=== PATIENT | female | born 1985 | race Caucasian/White ===

== ENCOUNTER 2016-12-02 16:28 | Emergency (ER) | payer OTHER ==
[2016-12-02] MEDS ORDERED: Sodium Chloride 0.9% 500 ML IV ONE (17:12)
[2016-12-02] MEDS ORDERED: Acetaminophen 650mg/20.3ml solution UD ONE (17:50)
[2016-12-02 17:51] LABS: BASO % 0.2 % (0.0-2.0); EOS # 0.4 K/uL (0.0-0.7); EOS % 2.8 % (0.0-4.0); LYMPH # 4.1 K/uL (1.0-4.3); LYMPH % 28.6 % (20.0-40.0); MEAN CELL VOLUME 92.4 fL (81.0-99.0); MEAN CORPUSCULAR HEMOGLOBIN 31.2 pg (27.0-31.0); MEAN CORPUSCULAR HGB CONC 33.8 g/dL (33.0-37.0); MEAN PLATELET VOLUME 7.9 fL (7.2-11.7); MONO # 0.9 K/uL (0.0-0.8); MONO % 6.1 % (0.0-10.0); RED CELL DISTRIBUTION WIDTH 11.9 % (11.5-14.5); WHITE BLOOD COUNT 14.5 K/uL (4.8-10.8)
[2016-12-02 18:00] LABS: CHLORIDE 105 mmol/L (98-107); POTASSIUM 3.6 mmol/L (3.6-5.2); SODIUM 141 mmol/L (132-148)
[2016-12-02 18:02] LABS: ALB/GLOB RATIO 1.3 (1.0-2.1); ALKALINE PHOSPHATASE 60 U/L (38-126); AST/SGOT 17 U/L (14-36); BILIRUBIN,TOTAL 0.4 mg/dL (0.2-1.3); CARBON DIOXIDE 24 mmol/L (22-30); GFR AFRICAN-AMERICAN > 60
[2016-12-02 18:03] LABS: ALT/SGPT 26 U/L (9-52); BLOOD UREA NITROGEN 11 mg/dL (7-17); CALCIUM 9.2 mg/dl (8.6-10.4); GLUCOSE,RANDOM 80 mg/dL (65-105)
--- NOTE | 2016-12-02 18:07 | C.PDOC ---
History Of Present Illness <JacjeffpanchitoJudiMartina - Last Filed: 12/02/16 19:14> <Sheri Carrizales - Last Filed: 12/02/16 20:00> 31 y/o female, A1, presents to ED for evaluation of vaginal bleeding that started last night after intercourse. Pt states that she noticed blood when urinating this morning. Pt also complaints of right shoulder pain radiating to chest for the last 2 hours. Notes that shoulder pain is worse with movement. Denies taking any OTC pain medications. Otherwise, denies any fever, chills, or any other associated symptoms at this time. (Martina Fuentes) History Per: Patient History/Exam Limitations: no limitations Onset/Duration Of Symptoms: Days (1) Current Symptoms Are (Timing): Still Present Quality: "Pain" Associated Symptoms: denies: Nausea, Dyspnea, Diaphoresis, Syncope Modifying Factors: None Alleviating Factors: None Recent travel outside of the [place]: No Additional History Per: Patient <Judi Fuentesov - Last Filed: 12/02/16 19:14> <SofieElidaalvarado - Last Filed: 12/02/16 20:00> Time Seen by Provider: 12/02/16 17:09 Chief Complaint (Nursing): Female Genitourinary Past Medical History Reviewed: Historical Data, Nursing Documentation, Vital Signs Family History: States: No Known Family Hx - Social History Hx Alcohol Use: No Hx Substance Use: No - Immunization History Hx Tetanus Toxoid Vaccination: No Hx Influenza Vaccination: No Hx Pneumococcal Vaccination: No <Martina Fuentes - Last Filed: 12/02/16 19:14> Review Of Systems Except As Marked, All Systems Reviewed And Found Negative. Constitutional: Negative for: Fever, Chills Cardiovascular: Positive for: Chest Pain (right side). Negative for: Palpitations, Light Headedness Respiratory: Negative for: Cough, Shortness of Breath Gastrointestinal: Negative for: Nausea, Vomiting, Abdominal Pain, Diarrhea, Constipation Genitourinary: Positive for: Hematuria, Vaginal Bleeding. Negative for: Dysuria , Frequency, Incontinence, Vaginal Discharge, Rash Musculoskeletal: Positive for: Shoulder Pain (right). Negative for: Neck Pain, Back Pain Skin: Negative for: Rash, Bruising <Martina Fuentes - Last Filed: 12/02/16 19:14> Physical Exam - Physical Exam Appears: Non-toxic, No Acute Distress Skin: Normal Color, Warm, Dry, No Rash Head: Atraumatic, Normacephalic Eye(s): bilateral: Normal Inspection, EOMI Nose: Normal Oral Mucosa: Moist Neck: Normal ROM, No Midline Cervical Tenderness, No Paracervical Tenderness, Supple Chest: Symmetrical Cardiovascular: Rhythm Regular, No Murmur Respiratory: Normal Breath Sounds, No Rales, No Rhonchi, No Wheezing Gastrointestinal/Abdominal: Soft, No Tenderness, No Guarding, No Rebound Back: No CVA Tenderness, No Vertebral Tenderness, Paraspinal Tenderness (right trapezius tenderness) Extremity: Normal ROM, No Tenderness, Capillary Refill (<2 sec.), No Deformity Neurological/Psych: Oriented x3, Normal Speech <Martina Fuentes - Last Filed: 12/02/16 19:14> ED Course And Treatment - Laboratory Results Result Diagrams: 12/02/16 17:46 12/02/16 17:46 O2 Sat by Pulse Oximetry: 99 (on RA) Pulse Ox Interpretation: Normal Progress Note: Blood work, UA, pelvis US ordered and reviewed. Pt was given Toradol, IV fluids, and Tylenol. Pt endorsed to Dr Carrizales pending US results, labs and re-evaluation. <Martina Fuentes - Last Filed: 12/02/16 19:14> - Laboratory Results Result Diagrams: 12/02/16 17:46 12/02/16 17:46 <Sheri Carrizales - Last Filed: 12/02/16 20:00> Disposition - Disposition Disposition Time: 19:14 <Martina Fuentes - Last Filed: 12/02/16 19:14> Counseled Patient/Family Regarding: Studies Performed, Diagnosis, Need For Followup <Sheri Carrizales - Last Filed: 12/02/16 20:00> - Disposition Referrals: Hattie Randle MD [Staff Provider] - Condition: FAIR Instructions: Threatened Miscarriage (ED) Forms: [employer] ([place]) - Clinical Impression Clinical Impression: First trimester bleeding, Shoulder pain, Threatened - PA / CARDER BLANKETS / Resident Statement MD/DO has reviewed & agrees with the documentation as recorded. - Scribe Statement The provider has reviewed the documentation as recorded by the Scribe <Martina Fuentes - Last Filed: 12/02/16 19:14> <Sheri Carrizales - Last Filed: 12/02/16 20:00> - Scribe Statement Alberto Randle All medical record entries made by the Scribe were at my direction and personally dictated by me. I have reviewed the chart and agree that the record accurately reflects my personal performance of the history, physical exam, medical decision making, and the department course for this patient. I have also personally directed, reviewed, and agree with the discharge instructions and disposition. (Martina Fuentes) Physician Patient Turnover Patient Signed Over To: Sheri Carrizales <Martina Fuentes - Last Filed: 12/02/16 19:14>
[2016-12-02 18:23] VITALS: PULSE 102
--- NOTE | 2016-12-02 19:26 | US ---
EXAM: US First Trimester, Transabdominal CLINICAL HISTORY: 31 years old, female; Signs and symptoms; Lmp or gestational age (in weeks): [id number]; Other: Bleeding; TECHNIQUE: Real-time transabdominal obstetrical ultrasound of the maternal pelvis and a first trimester with image documentation. COMPARISON: There are no prior studies for comparison. FINDINGS: Gestation: There is a single gestational sac in the uterus. Uterus: Uterus measures approximately 12 x 5 x 6 cm. Cervix measures approximately 3.3 cm in length. Ovaries: Right ovary measures 2.2 x 1.8 x 2.2 cm. There are multiple small follicles. There is intraovarian blood flow. Left ovary could not be identified Free fluid: There is no free fluid. IMPRESSION: Single intrauterine gestation not optimally evaluated with transabdominal imaging EXAM: US , Transvaginal EXAM DATE/TIME: 12/02/2016 5:12 PM CLINICAL HISTORY: 31 years old, female; Signs and symptoms; Lmp or gestational age (in weeks): [id number]; Other: Bleeding; TECHNIQUE: Real-time transvaginal obstetrical ultrasound of the maternal pelvis and a first trimester with image documentation. Transvaginal imaging was used for better evaluation of the fetus and adnexa. COMPARISON: There are no prior studies for comparison. FINDINGS: Gestation: There is a single intrauterine gestation. Gestational sac has mean diameter 23 mm. Lockhart rump length measures 5.4 mm . There is no embryonic cardiac activity A yolk sac is present, internal diameter measures 3 mm. Uterus: Uterus measures approximately 9 x 5 x 6 cm. Cervix measures approximately 3.6 cm in length. Ovaries: Right ovary measures approximately 2.82 x 1.36 x 2.03 cm. There are multiple small follicles. Left ovary measures approximately 2.57 x 2.24 x 2.47 cm. There is a corpus luteum in the left ovary. There is flow in both ovaries on Doppler imaging. Free fluid: There is no free fluid. IMPRESSION: 6 week 4 day single intrauterine gestation, no embryonic cardiac activity Correlation with serial beta hCG levels advised
[2016-12-02 19:47] LABS: RBC URINE < 1 /hpf (0-3); URINE BACTERIA RARE (<OCC); URINE BILIRUBIN NEGATIVE (NEGATIVE); URINE BLOOD 2+ (NEGATIVE); URINE COLOR Yellow (YELLOW); URINE GLUCOSE (UA) NORMAL (Normal); URINE KETONE NEGATIVE (NEGATIVE); URINE LEUKOCYTE ESTERASE NEG Leu/uL (Negative); URINE PROTEIN NEGATIVE (NEGATIVE); URINE UROBILINOGEN NORMAL mg/dL (0.2-1.0); WBC URINE < 1 /hpf (0-5)
[2016-12-02 20:16] VITALS: BP 118/70; RESP 81; TEMP 97.6; O2SAT 20
--- NOTE | 2016-12-03 15:04 | CARD ---
APPROVED REPORT EKG Measurement Heart [id number] <Conclusion> Normal sinus rhythm Normal ECG
== END 2016-12-02 20:16 | disposition home or self-care (01) ==
LOC: C.ER 16:28
DX: O20.0 Threatened abortion (principal); Z3A.01 Less than 8 weeks gestation of pregnancy; M25.511 Pain in right shoulder
CPT/HCPCS: 76805; 76817; 80053; 81001; 84702; 84703; 85025; 86850; 86900; 87086; 93005; 99285; J7040

== ENCOUNTER 2016-12-13 08:06 | Day surgery (SDC) | payer OTHER ==
[2016-12-06 10:58] VITALS: BMI 34.0
[2016-12-13] MEDS ORDERED: Lactated Ringer's 1,000 ML IV ONE ×2 (10:02)
[2016-12-13] MEDS ORDERED: Oxytocin 10 Units/ml Inj ONE (10:34)
[2016-12-13] MEDS ORDERED: Midazolam 2 MG/2 ML VIAL ONE (10:36)
[2016-12-13] MEDS ORDERED: Propofol 10 mg/ml Inj (20 ML) ONE (10:36)
[2016-12-13] MEDS ORDERED: Lidocaine Hydrochloride 5 ML INJ ONE (11:11)
--- NOTE | 2016-12-13 11:14 | PCM.SURG1 ---
Surgeon's Initial Post Op Note - Surgeon's Notes Surgeon: Hattie Randle MD Email Specialist: none Type of Anesthesia: General LMA Pre-Operative Diagnosis: Missed 7 weeks GA Operative Findings: Anteverted uteurs, 7 curvved suction currette, no adnexal masses, moderate amoutsn products of conception, good hemostasis Post-Operative Diagnosis: same as above Operation Performed: Suction Dilation and currettage Specimen/Specimens Removed: products of conception Estimated Blood Loss: EBL {In ML}: 10 Blood Products Given: N/A Drains Used: No Drains Post-Op Condition: Good Date of Surgery/Procedure: 12/13/16 Time of Surgery/Procedure: 11:00
[2016-12-13 12:22] VITALS: RESP 16
[2016-12-13 13:20] VITALS: BP 118/66; PULSE 82; TEMP 98.3; O2SAT 99
--- NOTE | 2016-12-13 15:22 | OP ---
PROCEDURE DATE: 12/13/2016 PREOPERATIVE DIAGNOSIS: Missed , 7 weeks gestation. POSTOPERATIVE DIAGNOSIS: Missed 7 weeks gestation. OPERATIVE FINDINGS: Anteverted uterus . No adnexal masses . OPERATION PERFORMED: Fractional dilation and curettage. SPECIMEN: Products of conception. ESTIMATED BLOOD LOSS: 10 mL. BLOOD PRODUCTS: None. COMPLICATIONS: None. SURGEON: Dr. Hattie Randle CHILDREN'S LUNCHROOM SUPERVISOR: None TYPE OF ANESTHESIA: LMA DESCRIPTION OF PROCEDURE: The patient was taken to the operating room where she was given general anesthesia. Once found to be adequate, she was placed on the operating table in the dorsal supine position with legs supported using stirrups. The patient was prepped and draped in the usual sterile fashion. A time-out was performed to confirm correct patient and correct procedure. Bimanual exam was performed with the above-mentioned findings. A red rubber catheter was then inserted into the urethra to drain the bladder. A Rodriguez retractor was placed in the anteroposterior fornix of the vagina. The cervix was adequately visualized. Single-toothed tenaculum was placed on the anterior lip of the cervix. The cervix appeared closed and there was no production of conception at the os of the uterus. The cervix was sequentially dilated with a Micheal dilator to allow for introduction of the 7-mm curved suction curette, which was advanced to the fundus, rotated 360 degrees. Moderate amounts of products of conception were obtained and this was done 3 times. Following this, a gentle curettage was done 360 degrees. The suction curette was then advanced one final time until all products were removed. All instruments removed. There was good hemostasis. At the end of the procedure, all needle, sponge, and instrument counts were noted and correct x2. The patient tolerated the procedure well and was transferred to the recovery room in stable condition. Hattie Randle MD
== END 2016-12-13 13:09 | disposition home or self-care (01) ==
LOC: C.SDS 08:06
PROVIDERS: ATTEND Obstetrics & Gynecology
DX: O02.1 Missed abortion (principal); N85.4 Malposition of uterus
CPT/HCPCS: 36415; 59820; 86850; 86900; 88305; J1100; J2250; J2704; J3010; J7120